=== PATIENT | female | born 1945 | race Caucasian/White ===

== ENCOUNTER → 2018-02-19 | Outpatient (CLI) | payer OTHER, MEDICARE ==
[~2018-02-19] VITALS: Ht 160 cm; Wt 54.0 kg
[~2018-02-19] MED LIST: ATIVAN0.5 MG PO; CALCIUM OR; CENTRUM SILVER1 EAC4 PO; COMPAZINE10 MG PO; CRESTOR40 MG PO; DAILY MULTIVIT1 EAC1 PO; FISHOIL OR; LAMICTAL200 MG PO; OMEPRAZOLE40 MG PO; ONDANSETRON HCL4 M2 PO; PRAVACHOL20 MG PO; PROBIOTIC FORM1 EACH PO; PROBIOTIC1 EAC1 PO; PROTONIX40 M1 PO; RESTASIS1 EACH OPHTHALMIC; TRAZODONE HCL50 MG PO; XANAX 0.25 MG0.25 MG PO
--- NOTE | ~2018-02-19 | PATH ---
[facility] [address] [place] [address] PATHOLOGY RPT PROCEDURE Name: BRENDA GARG Room #: REG Randall Frye.#: [id number] Admission: 02/19/18 Date of : 49 Discharge: Report #: [id number] Path Case #: [id number] [facility] Accession Number: [id number] . 01 Material submitted: . ESOPHAGEAL BX R/O EOSINOPHILIC ESOPHAGITIS . 01 Clinical history: . Dysphagia Schatzki's ring Rule out EOE . 02 Diagnosis: Squamous mucosa "esophageal biopsy": - Reflux esophagitis with reactive squamous mucosa. - There is no evidence of goblet cell metaplasia, dysplasia or malignancy. - There is no eosinophilic esophagitis. (SHA:luz; 02/20/2018) QMS/02/20/2018 . 02 Electronically signed: . Abdullahi Flood MD, Pathologist NPI- [id number] . 01 Gross description: . The specimen is received in formalin, labeled "Brenda Garg, esophageal BX" and consists of multiple translucent fragments of deluna-alexis tissue measuring 1.0 x 0.7 x 0.1 cm in aggregate which are entirely submitted in A1. (SDY; 02/19/2018) SYU/SYU . 02 Pathologist provided ICD-10: K21.0 . 02 CPT . 060839 Specimen Comment: A courtesy copy of this report has been sent to Specimen Comment: [phone], . Specimen Comment: Report sent to / DR BUSTILLO Specimen Comment: A duplicate report has been generated due to demographic updates. Performed at: [address] [id number] MD Silvino Bey MD Phone: [phone] Performed at: [address] [id number] PATHOLOGY RPT PROCEDURE Name: BRENDA GARG Room #: REG CLI Ave#: [id number] Admission: 02/19/18 Date of : 49 Discharge: Report #: [id number] Path Case #: [id number] [address] [id number] MD Bere Rivera MD Phone: [phone]
== END | disposition home or self-care (01) ==
LOC: GI 07:44
DX: K22.2 Esophageal obstruction (principal); K44.9 Diaphragmatic hernia without obstruction or gangrene; F41.9 Anxiety disorder, unspecified; F32.9 Major depressive disorder, single episode, unspecified; E78.00 Pure hypercholesterolemia, unspecified; K21.9 Gastro-esophageal reflux disease without esophagitis; E78.5 Hyperlipidemia, unspecified; Z98.51 Tubal ligation status; Z90.89 Acquired absence of other organs; Z98.890 Other specified postprocedural states; Z90.11 Acquired absence of right breast and nipple; Z88.0 Allergy status to penicillin; Z88.8 Allergy status to other drugs, medicaments and biological substances; Z85.3 Personal history of malignant neoplasm of breast
CPT/HCPCS: 62110; 62900

== ENCOUNTER 2018-02-20 23:11 | Inpatient (IN) | payer OTHER, MEDICARE ==
[~2018-02-20] VITALS: Ht 160 cm; Wt 55.8 kg
[~2018-02-20 23:11] MED LIST changes: -PROTONIX40 M1 PO
[2018-02-20 23:16] VITALS: BP 160/70
[2018-02-21 01:30] LABS: BASOPHILS 0.9 % (0.0-2.0); EOSINOPHILS 1.2 % (0.0-3.0); HEMATOCRIT 42.3 % (37.0-47.0); HEMOGLOBIN 14.1 gm/dL (12.0-15.0); LYMPHOCYTES 22.9 % (24.0-44.0); MCH 30.6 pg (26.0-34.0); MCHC 33.4 g/dL (28.0-37.0); MCV 91.8 fL (80.0-100.0); PLATELET COUNT 291 thou/uL (150-400); RBC 4.61 mil/uL (4.20-5.00); RDW 12.6 % (10.5-14.5); WBC 8.9 thou/uL (4.0-11.0)
[2018-02-21 01:41] LABS: CALCIUM 9.6 mg/dL (8.5-10.1); CREATININE 0.8 mg/dL (0.6-1.0)
[2018-02-21 02:07] VITALS: BP 162/95
[2018-02-21 02:11] VITALS: BP 162/95
[2018-02-21 02:30] VITALS: BP 149/84
[2018-02-21] MEDS ORDERED: PROTONIX40 M1 PO (17:49)
[2018-02-21 17:52] VITALS: BP 149/84
== END 2018-02-21 18:36 | disposition home or self-care (01) | DRG 395 ==
LOC: ER 23:11 → 4W 02-21 01:36 → EROBS 02-21 01:36 → 4W 02-21 02:11
PROVIDERS: Student in an Organized Health Care Education/Training Program
DX: T18.128A Food in esophagus causing other injury, initial encounter (principal); K21.9 Gastro-esophageal reflux disease without esophagitis; E78.5 Hyperlipidemia, unspecified; K22.2 Esophageal obstruction; F41.9 Anxiety disorder, unspecified; F32.9 Major depressive disorder, single episode, unspecified; M81.0 Age-related osteoporosis without current pathological fracture; X58.XXXA Exposure to other specified factors, initial encounter; Y93.89 Activity, other specified; Z85.3 Personal history of malignant neoplasm of breast; Z85.118 Personal history of other malignant neoplasm of bronchus and lung; Y92.89 Other specified places as the place of occurrence of the external cause; Y99.8 Other external cause status; Z90.11 Acquired absence of right breast and nipple; Z79.899 Other long term (current) drug therapy; Z88.0 Allergy status to penicillin; Z88.1 Allergy status to other antibiotic agents; Z88.8 Allergy status to other drugs, medicaments and biological substances; Z80.0 Family history of malignant neoplasm of digestive organs; Z82.5 Family history of asthma and other chronic lower respiratory diseases
CPT/HCPCS: 10045